=== PATIENT | male | born 1995 | race Caucasian/White ===

== ENCOUNTER 2019-07-02 19:53 | Emergency (ER) | payer BC ==
[~2019-07-02] VITALS: Ht 185.4 cm; Wt 86.2 kg
[~2019-07-02 19:53] MED LIST: ELIMITE60 GM TP; HYDROCODON-ACE1 EAC7 PO; NOHOMEMEDICATIONS; PHENERGAN 25 MG25 M1 PO; TRAMADOL 50 MG50 MG PO
[2019-07-02 21:11] LABS: INFLUENZA A ANTIGEN Negative (Negative); INFLUENZA B ANTIGEN Negative (Negative)
[2019-07-02] MEDS ORDERED: TYLENOL WITH CO1 TA1 PO (21:12)
[2019-07-02] MEDS ORDERED: ZPAK PO (21:12)
[2019-07-02] MEDS ORDERED: MEDROLDOSEPACK PO (21:12)
[2019-07-02] MEDS ORDERED: PROAIR HFA8.5 GM INH (21:12)
[2019-07-02 21:32] VITALS: BP 132/74
== END 2019-07-02 21:32 | disposition home or self-care (01) ==
LOC: M.ERS 19:53
PROVIDERS: Physician Assistant
DX: J20.9 Acute bronchitis, unspecified (principal); F17.210 Nicotine dependence, cigarettes, uncomplicated